=== PATIENT | male | born 1950 | race Two or more races ===

== ENCOUNTER 2020-08-22 17:45 | Inpatient (IN) | payer MEDICARE, MEDICAID ==
[~2020-08-22] VITALS: Ht 167.6 cm; Wt 80.2 kg
--- NOTE | 2020-08-22 18:21 | NUR ---
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
[2020-08-22 18:44] LABS: MEAN CORPUSCULAR HEMOGLOBIN 28.5 pg (27.5-34.5); MEAN CORPUSCULAR HGB CONC 31.1 g/dL (33.2-36.2); MEAN PLATELET VOLUME 7.5 fL (7.4-10.4); PLATELET COUNT 855 x10^3/uL (130-400); RED BLOOD COUNT 3.43 x10^6/uL (4.38-5.82); RED CELL DISTRIBUTION WIDTH 14.8 % (9.4-14.8)
[2020-08-22 18:53] LABS: ALANINE AMINOTRANSFERASE 31 U/L (12-78); ALBUMIN 4.3 g/dL (3.4-5.0); CALCIUM 8.8 mg/dL (8.5-10.1); CREATININE 1.48 mg/dL (0.7-1.3)
[2020-08-22 18:57] LABS: ALKALINE PHOSPHATASE 75 U/L (45-117); BILIRUBIN,TOTAL 0.4 mg/dL (0.2-1.0); TOTAL PROTEIN 7.3 g/dL (6.4-8.2); TROPONIN I < 0.015 ng/mL (0.000-0.045)
[2020-08-22 19:04] LABS: ANION GAP 1 mmol/L (5-15); CHLORIDE 105 mmol/L (98-107)
[2020-08-22 19:11] LABS: MICROSCOPIC NOT IND
[2020-08-22 19:16] LABS: MD YES
[2020-08-22 19:50] LABS: BAND#(MANUAL) 16.66 x10^3/uL; BANDS%(MANUAL) 12 % (0-7); BASOS#(MANUAL) 4.16 x10^3/uL (0-0.1); BASOS% (MANUAL) 3 % (0-1); EOS#(MANUAL) 4.16 x10^3/uL (0.0-0.4); EOS% (MANUAL) 3 % (1-7); METAMYELOCYTES# (MANUAL) 13.88 x10^3/uL (0-0); METAMYELOCYTES% (MANUAL) 10 % (0-1); MONOS#(MANUAL) 6.94 x10^3/uL (0.3-2.7); MONOS% (MANUAL) 5 % (2-9); MYELOCYTES# (MANUAL) 36.09 x10^3/uL (0-0); MYELOCYTES% (MANUAL) 26 % (0-0); OTHER CELLS # (MANUAL) 12.49 x10^3/uL (0-0); OTHER CELLS % (MANUAL) 9 % (0-0); PROGRANULOCYTES# (MANUAL) 4.16 x10^3/uL (0-0); PROGRANULOCYTES% (MANUAL) 3 % (0-0); SEG#(MANUAL) 40.25 x10^3/uL (1.8-6.8); SEGS% (MANUAL) 29 % (42-75)
[2020-08-22 19:51] LABS: ANISOCYTOSIS 1+; POLYCHROMASIA 1+; SPHEROCYTES 1+
[2020-08-22 19:53] LABS: HYPOCHROMIA 1+
[2020-08-22 19:54] LABS: <PLATELET ESTIMATE> INCREASED; GIANT PLATELETS 1+; LARGE PLATELETS 1+
[2020-08-22] MEDS ORDERED: SODIUM CHLORIDE 0.9% 1,000ML IVBOLUS ONE (20:00)
[2020-08-22] MEDS ORDERED: LACTATED RINGERS 1,000 ML IVBOLUS ONE (20:00)
[2020-08-22 22:14] VITALS: BP 125/66
[2020-08-22] MEDS ORDERED: GABAPENTIN 300 MG CAPSULE PO PRN (23:00)
[2020-08-22] MEDS ORDERED: ACETAMINOPHEN 325 MG TABLET PO PRN (23:00)
[2020-08-22] MEDS ORDERED: PROMETHAZINE 25 MG/ML, 1ML IM PRN (23:00)
[2020-08-22] MEDS ORDERED: LACTATED RINGERS 1,000 ML IV SCH (23:00)
[2020-08-22] MEDS ORDERED: MELATONIN 5 MG TABLET PO PRN (23:00)
[2020-08-22] MEDS ORDERED: LABETALOL 5MG/ML, 20ML IVPush PRN (23:00)
[2020-08-22] MEDS ORDERED: PHARMACY MAY ADJ FOR RENAL FX MC PRN (23:30)
[2020-08-23 01:42] VITALS: BP 103/59
[2020-08-23 05:51] LABS: MEAN CORPUSCULAR HEMOGLOBIN 29.8 pg (27.5-34.5); MEAN CORPUSCULAR HGB CONC 32.1 g/dL (33.2-36.2); MEAN PLATELET VOLUME 7.9 fL (7.4-10.4); PLATELET COUNT 757 x10^3/uL (130-400); RED BLOOD COUNT 3.11 x10^6/uL (4.38-5.82); RED CELL DISTRIBUTION WIDTH 14.8 % (9.4-14.8)
[2020-08-23 05:52] LABS: ANION GAP 4 mmol/L (5-15); CALCIUM 8.1 mg/dL (8.5-10.1); CHLORIDE 106 mmol/L (98-107)
[2020-08-23 05:53] LABS: CREATININE 1.26 mg/dL (0.7-1.3)
[2020-08-23] MEDS: ASPIRIN 325 MG TABLET PO SCH (06:00)
[2020-08-23 06:50] LABS: MD YES
[2020-08-23 07:18] VITALS: BP_SYST 137; BP_SYST 141; BP_DIAS 76; BP_DIAS 83
[2020-08-23 08:20] LABS: BASOS#(MANUAL) 3.47 x10^3/uL (0-0.1); BASOS% (MANUAL) 3 % (0-1); EOS#(MANUAL) 1.16 x10^3/uL (0.0-0.4); EOS% (MANUAL) 1 % (1-7); LYMPH#(MANUAL) 3.47 x10^3/uL (1-3.4); LYMPHS% (MANUAL) 3 % (22-44); METAMYELOCYTES# (MANUAL) 16.18 x10^3/uL (0-0); METAMYELOCYTES% (MANUAL) 14 % (0-1); MONOS#(MANUAL) 4.62 x10^3/uL (0.3-2.7); MONOS% (MANUAL) 4 % (2-9); MYELOCYTES# (MANUAL) 21.96 x10^3/uL (0-0); MYELOCYTES% (MANUAL) 19 % (0-0); SEG#(MANUAL) 32.37 x10^3/uL (1.8-6.8); SEGS% (MANUAL) 28 % (42-75)
[2020-08-23 08:23] LABS: ANISOCYTOSIS 1+; PROGRANULOCYTES# (MANUAL) 2.31 x10^3/uL (0-0); PROGRANULOCYTES% (MANUAL) 2 % (0-0)
[2020-08-23 08:24] LABS: POLYCHROMASIA 1+; SPHEROCYTES 1+
[2020-08-23 08:25] LABS: <PLATELET ESTIMATE> INCREASED; <PLT MORPHOLOGY> NORMAL PLT MORPH
[2020-08-23 08:26] LABS: BAND#(MANUAL) 23.12 x10^3/uL; BANDS%(MANUAL) 20 % (0-7); OTHER CELLS # (MANUAL) 6.94 x10^3/uL (0-0); OTHER CELLS % (MANUAL) 6 % (0-0)
[2020-08-23 08:27] LABS: GIANT PLATELETS 1+; LARGE PLATELETS 1+
[2020-08-23 08:46] LABS: D-DIMER (DIC) 0.55 ug/mlFEU (0.00-0.52); PROTIME 11.2 Seconds (9.6-11.5)
[2020-08-23] MEDS: SENNA/DOCUSATE TABLET PO SCH (09:43)
[2020-08-23 12:14] LABS: HCT (SEDRATE) 30.5 % (39.2-51.8)
[2020-08-23 17:46] VITALS: BP 118/69
[2020-08-23] MEDS: SODIUM CHLORIDE 0.9% 1,000 ML IV SCH (17:46)
[2020-08-23 19:45] VITALS: BP 128/72
[2020-08-24 01:05] VITALS: BP 116/68
[2020-08-24] MEDS: ASPIRIN 325 MG TABLET PO SCH (05:27)
[2020-08-24] MEDS: SODIUM CHLORIDE 0.9% 1,000 ML IV SCH ×3 (05:28→23:58)
[2020-08-24 06:18] LABS: MEAN CORPUSCULAR HEMOGLOBIN 29.5 pg (27.5-34.5); PLATELET COUNT 663 x10^3/uL (130-400); RED BLOOD COUNT 3.03 x10^6/uL (4.38-5.82)
[2020-08-24 06:33] LABS: ALANINE AMINOTRANSFERASE 23 U/L (12-78); ANION GAP 7 mmol/L (5-15); CALCIUM 7.9 mg/dL (8.5-10.1); CHLORIDE 109 mmol/L (98-107)
[2020-08-24 06:36] LABS: ALKALINE PHOSPHATASE 82 U/L (45-117); BILIRUBIN,TOTAL 0.6 mg/dL (0.2-1.0); CREATININE 1.11 mg/dL (0.7-1.3); TOTAL PROTEIN 5.5 g/dL (6.4-8.2)
[2020-08-24 06:40] VITALS: BP 137/57
[2020-08-24 07:05] LABS: MD YES
[2020-08-24 07:21] LABS: BASOS#(MANUAL) 3.32 x10^3/uL (0-0.1); BASOS% (MANUAL) 3 % (0-1); EOS#(MANUAL) 1.11 x10^3/uL (0.0-0.4); EOS% (MANUAL) 1 % (1-7); PROGRANULOCYTES# (MANUAL) 1.11 x10^3/uL (0-0); PROGRANULOCYTES% (MANUAL) 1 % (0-0)
[2020-08-24 07:23] LABS: OTHER CELLS # (MANUAL) 5.53 x10^3/uL (0-0); OTHER CELLS % (MANUAL) 5 % (0-0)
[2020-08-24 07:24] LABS: BAND#(MANUAL) 38.71 x10^3/uL; BANDS%(MANUAL) 35 % (0-7); LYMPH#(MANUAL) 2.21 x10^3/uL (1-3.4); LYMPHS% (MANUAL) 2 % (22-44); MONOS#(MANUAL) 2.21 x10^3/uL (0.3-2.7); MONOS% (MANUAL) 2 % (2-9)
[2020-08-24 07:25] LABS: METAMYELOCYTES# (MANUAL) 9.95 x10^3/uL (0-0); METAMYELOCYTES% (MANUAL) 9 % (0-1); MYELOCYTES# (MANUAL) 11.06 x10^3/uL (0-0); MYELOCYTES% (MANUAL) 10 % (0-0); SEG#(MANUAL) 35.39 x10^3/uL (1.8-6.8); SEGS% (MANUAL) 32 % (42-75)
[2020-08-24 07:26] LABS: ANISOCYTOSIS 1+; ECHINOCYTES 1+; POLYCHROMASIA 1+; SCHISTOCYTES 1+; SPHEROCYTES 1+
[2020-08-24 07:28] LABS: <PLATELET ESTIMATE> INCREASED; BASOPHILLIC STIPPLING 1+; GIANT PLATELETS 1+; LARGE PLATELETS 1+
[2020-08-24] MEDS: SENNA/DOCUSATE TABLET PO SCH (09:00)
[2020-08-24 13:04] VITALS: BP 127/70
[2020-08-24 18:49] VITALS: BP 120/64
[2020-08-25 00:22] VITALS: BP 141/81
[2020-08-25] MEDS: ASPIRIN 325 MG TABLET PO SCH (05:53)
[2020-08-25 06:30] VITALS: BP 96/57
[2020-08-25 07:49] LABS: MEAN CORPUSCULAR HEMOGLOBIN 29.6 pg (27.5-34.5); MEAN PLATELET VOLUME 7.6 fL (7.4-10.4); PLATELET COUNT 665 x10^3/uL (130-400); RED BLOOD COUNT 3.29 x10^6/uL (4.38-5.82); RED CELL DISTRIBUTION WIDTH 14.6 % (9.4-14.8)
[2020-08-25 07:59] LABS: ANION GAP 6 mmol/L (5-15); CALCIUM 8.3 mg/dL (8.5-10.1); CHLORIDE 111 mmol/L (98-107)
[2020-08-25 08:00] LABS: ALANINE AMINOTRANSFERASE 20 U/L (12-78); ALBUMIN 3.3 g/dL (3.4-5.0)
[2020-08-25 08:02] LABS: ALKALINE PHOSPHATASE 70 U/L (45-117); BILIRUBIN,TOTAL 0.4 mg/dL (0.2-1.0); MD YES; TOTAL PROTEIN 6.1 g/dL (6.4-8.2)
[2020-08-25 08:17] LABS: BAND#(MANUAL) 11.97 x10^3/uL; BANDS%(MANUAL) 11 % (0-7); BASOS#(MANUAL) 5.44 x10^3/uL (0-0.1); BASOS% (MANUAL) 5 % (0-1); EOS% (MANUAL) 8 % (1-7); LYMPH#(MANUAL) 7.62 x10^3/uL (1-3.4); LYMPHS% (MANUAL) 7 % (22-44); METAMYELOCYTES# (MANUAL) 10.88 x10^3/uL (0-0); METAMYELOCYTES% (MANUAL) 10 % (0-1); MONOS#(MANUAL) 6.53 x10^3/uL (0.3-2.7); MONOS% (MANUAL) 6 % (2-9); MYELOCYTES% (MANUAL) 17 % (0-0); OTHER CELLS # (MANUAL) 3.26 x10^3/uL (0-0); PROGRANULOCYTES# (MANUAL) 2.18 x10^3/uL (0-0); PROGRANULOCYTES% (MANUAL) 2 % (0-0); SEG#(MANUAL) 33.73 x10^3/uL (1.8-6.8); SEGS% (MANUAL) 31 % (42-75)
[2020-08-25 08:18] LABS: OTHER CELLS % (MANUAL) 3 % (0-0)
[2020-08-25 08:19] LABS: <PLATELET ESTIMATE> INCREASED; ANISOCYTOSIS 1+; BASOPHILLIC STIPPLING 1+; ECHINOCYTES 1+; POLYCHROMASIA 1+; SPHEROCYTES 1+
[2020-08-25 08:20] LABS: GIANT PLATELETS 1+; LARGE PLATELETS 1+
[2020-08-25] MEDS: SENNA/DOCUSATE TABLET PO SCH (08:20)
[2020-08-25] MEDS ORDERED: PRAMIPEXOLE 0.5MG TABLET PO SCH (09:00)
[2020-08-25] MEDS: SODIUM CHLORIDE 0.9% 1,000 ML IV SCH (09:33)
[2020-08-25] MEDS ORDERED: NYST1POW31 TP (10:56)
[2020-08-25] MEDS ORDERED: PRAM0.5T5 PO (10:56)
[2020-08-25] MEDS ORDERED: ROPI1TAB4 PO ×2 (10:56)
[2020-08-25] MEDS ORDERED: METF500T27 PO (14:53)
== END 2020-08-25 14:55 | disposition home or self-care (01) | DRG 683 ==
LOC: ED 21:20 → EDIP 21:22 → 4NW 22:08 → 4WST 08-23 12:48 → DCLOUNGE 08-25 14:48
PROVIDERS: ADMIT Family Medicine; ATTEND Hospitalist
DX: N17.9 Acute kidney failure, unspecified (principal); C92.10 Chronic myeloid leukemia, BCR/ABL-positive, not having achieved remission; E86.0 Dehydration; E79.0 Hyperuricemia without signs of inflammatory arthritis and tophaceous disease; D64.9 Anemia, unspecified; E11.9 Type 2 diabetes mellitus without complications; G25.81 Restless legs syndrome; G62.9 Polyneuropathy, unspecified; I10 Essential (primary) hypertension; D47.3 Essential (hemorrhagic) thrombocythemia; R60.0 Localized edema; Z79.84 Long term (current) use of oral hypoglycemic drugs; Z59.0 Homelessness; Z91.040 Latex allergy status; Z91.048 Other nonmedicinal substance allergy status
CPT/HCPCS: 36415; 71045; 76700; 80048; 80053; 81003; 83036; 83615; 83735; 83880; 84100; 84484; 84550; 85025; 85049; 85379; 85384; 85610; 85651; 85730; 93005; 93306; 96360; G0378; J7030; J7120

== ENCOUNTER 2020-09-03 08:29 | Emergency (ER) | payer MEDICARE, MEDICAID ==
[~2020-09-03] VITALS: Ht 167.6 cm; Wt 86.4 kg
[~2020-09-03 08:29] MED LIST: METF500T27 PO; NYST1POW31 TP; PRAM0.5T5 PO; ROPI1TAB4 PO
--- NOTE | 2020-09-03 09:17 | NUR ---
PT BROUGHT BACK TO ROOM FROM TRIAGE. PT STATED THAT HE HAS "PAIN ALL OVER." PT MOSTLY COMPLAINING OF PAIN IN HIS BILATERAL HIPS LEGS AND A SHOOTING PAIN IN HIS FEET. PT STATED THAT HE IS CURRENTLY ON CHEMOTHERAPY FOR LEUKEMIA, BUT IS UNABLE TO AFFORD HIS MEDICATIONS FOR DIABETES AND HIGH BLOOD PRESSURE. PT HAD A WOUND ON LEFT TUCKER THAT REQUIRED WOUNND VAC FOR CLOSURE A COUPLE MONTHS AGO. PT STATED THAT LEG STILL HURTS.
[2020-09-03 09:39] LABS: MEAN CORPUSCULAR HEMOGLOBIN 30.1 pg (27.5-34.5); MEAN CORPUSCULAR HGB CONC 32.9 g/dL (33.2-36.2); MEAN PLATELET VOLUME 8.4 fL (7.4-10.4); PLATELET COUNT 321 x10^3/uL (130-400)
[2020-09-03 09:50] LABS: ALBUMIN 3.7 g/dL (3.4-5.0); CALCIUM 8.9 mg/dL (8.5-10.1); CHLORIDE 106 mmol/L (98-107)
[2020-09-03 09:55] LABS: ALANINE AMINOTRANSFERASE 28 U/L (12-78); ALKALINE PHOSPHATASE 88 U/L (45-117); ANION GAP 9 mmol/L (5-15); BILIRUBIN,TOTAL 0.4 mg/dL (0.2-1.0); CREATININE 1.23 mg/dL (0.7-1.3); TOTAL PROTEIN 6.4 g/dL (6.4-8.2)
[2020-09-03 10:09] LABS: MD YES
[2020-09-03 10:10] VITALS: BP 129/53
--- NOTE | 2020-09-03 10:10 | NUR ---
PT RESTING COMFORTABLY IN BED. CALL LIGHT WITHIN REACH
[2020-09-03 10:28] LABS: BAND#(MANUAL) 3.99 x10^3/uL; BANDS%(MANUAL) 9 % (0-7); LYMPH#(MANUAL) 1.33 x10^3/uL (1-3.4); LYMPHS% (MANUAL) 3 % (22-44); MONOS#(MANUAL) 1.77 x10^3/uL (0.3-2.7); MONOS% (MANUAL) 4 % (2-9)
[2020-09-03 10:29] LABS: BASOS#(MANUAL) 2.66 x10^3/uL (0-0.1); BASOS% (MANUAL) 6 % (0-1); EOS#(MANUAL) 3.54 x10^3/uL (0.0-0.4); EOS% (MANUAL) 8 % (1-7); METAMYELOCYTES# (MANUAL) 3.99 x10^3/uL (0-0); METAMYELOCYTES% (MANUAL) 9 % (0-1); MYELOCYTES# (MANUAL) 1.33 x10^3/uL (0-0); MYELOCYTES% (MANUAL) 3 % (0-0); PROGRANULOCYTES# (MANUAL) 0.89 x10^3/uL (0-0); PROGRANULOCYTES% (MANUAL) 2 % (0-0)
[2020-09-03 10:34] LABS: BLASTS # (MANUAL) 0.44 x10^3/uL (0-0); SEGS% (MANUAL) 54 % (42-75)
[2020-09-03 10:37] LABS: <PLATELET ESTIMATE> ADEQUATE; <PLT MORPHOLOGY> NORMAL PLT MORPH; ANISOCYTOSIS 1+; ECHINOCYTES 1+; POLYCHROMASIA 1+
[2020-09-03 10:39] LABS: BLASTS % (MANUAL) 1 % (0-0)
--- NOTE | 2020-09-03 11:37 | NUR ---
DISCHARGE INSTRUCTIONS REVIEWED WITH PT. ALL QUESTIONS ANSWERED AT THIS TIME
== END 2020-09-03 11:39 | disposition home or self-care (01) ==
LOC: ED 08:32
DX: M79.662 Pain in left lower leg (principal); Z59.0 Homelessness
CPT/HCPCS: 36415; 80053; 85025; 99284

== ENCOUNTER 2020-09-07 11:13 | Emergency (ER) | payer MEDICARE, MEDICAID ==
[~2020-09-07] VITALS: Ht 167.6 cm; Wt 85.9 kg
[2020-09-07 11:57] LABS: MEAN CORPUSCULAR HEMOGLOBIN 29.5 pg (27.5-34.5); MEAN CORPUSCULAR HGB CONC 32.5 g/dL (33.2-36.2); MEAN PLATELET VOLUME 8.4 fL (7.4-10.4); PLATELET COUNT 349 x10^3/uL (130-400); RED BLOOD COUNT 2.84 x10^6/uL (4.38-5.82); RED CELL DISTRIBUTION WIDTH 14.4 % (9.4-14.8)
[2020-09-07 11:59] LABS: MD YES
[2020-09-07] MEDS ORDERED: SODIUM CHLORIDE FLUSH 10ML SYR IVF ONE (12:00)
[2020-09-07 12:10] LABS: ALANINE AMINOTRANSFERASE 19 U/L (12-78); ANION GAP 6 mmol/L (5-15); CALCIUM 8.3 mg/dL (8.5-10.1); CHLORIDE 107 mmol/L (98-107); CREATININE 1.24 mg/dL (0.7-1.3)
[2020-09-07 12:14] LABS: ALKALINE PHOSPHATASE 72 U/L (45-117); BILIRUBIN,TOTAL 0.5 mg/dL (0.2-1.0); TOTAL PROTEIN 6.4 g/dL (6.4-8.2); TROPONIN I < 0.015 ng/mL (0.000-0.045)
[2020-09-07 12:32] LABS: BAND#(MANUAL) 2.57 x10^3/uL; BANDS%(MANUAL) 9 % (0-7); BASOS#(MANUAL) 0.86 x10^3/uL (0-0.1); BASOS% (MANUAL) 3 % (0-1); BLASTS # (MANUAL) 0.29 x10^3/uL (0-0); EOS#(MANUAL) 1.43 x10^3/uL (0.0-0.4); EOS% (MANUAL) 5 % (1-7); LYMPH#(MANUAL) 1.71 x10^3/uL (1-3.4); LYMPHS% (MANUAL) 6 % (22-44); METAMYELOCYTES# (MANUAL) 2.57 x10^3/uL (0-0); METAMYELOCYTES% (MANUAL) 9 % (0-1); MONOS#(MANUAL) 0.86 x10^3/uL (0.3-2.7); MONOS% (MANUAL) 3 % (2-9); MYELOCYTES# (MANUAL) 3.14 x10^3/uL (0-0); MYELOCYTES% (MANUAL) 11 % (0-0); SEG#(MANUAL) 15.11 x10^3/uL (1.8-6.8); SEGS% (MANUAL) 53 % (42-75)
[2020-09-07 12:34] LABS: BLASTS % (MANUAL) 1 % (0-0)
[2020-09-07 12:35] LABS: ANISOCYTOSIS 1+; POLYCHROMASIA 1+
[2020-09-07 12:36] LABS: <PLATELET ESTIMATE> ADEQUATE; <PLT MORPHOLOGY> NORMAL PLT MORPH; ECHINOCYTES 1+
[2020-09-07] MEDS ORDERED: OMNIPAQUE 350 MG/ML, 100ML BOTTLE ONE (14:18)
[2020-09-07 15:05] VITALS: BP 135/69
--- NOTE | 2020-09-07 15:11 | NUR ---
Patient/Caregiver given discharge instructions and they have confirmed that they understand the instructions. Patient ambulatory with steady gait.
== END 2020-09-07 15:12 | disposition home or self-care (01) ==
LOC: ED 14:16
DX: J02.9 Acute pharyngitis, unspecified (principal); R94.31 Abnormal electrocardiogram [ECG] [EKG]; I49.3 Ventricular premature depolarization; C91.10 Chronic lymphocytic leukemia of B-cell type not having achieved remission; R13.12 Dysphagia, oropharyngeal phase; R06.00 Dyspnea, unspecified; I10 Essential (primary) hypertension; E11.9 Type 2 diabetes mellitus without complications
CPT/HCPCS: 36415; 70491; 71045; 80053; 83880; 84484; 85025; 93005; 99285; Q9967